=== PATIENT | male | born 1935 | race Caucasian/White ===

== ENCOUNTER 2017-05-05 15:17 | Emergency (ER) | payer OTHER ==
[2017-05-05 15:44] VITALS: BP 123/77; PULSE 77; RESP 16; TEMP 97.5; O2SAT 99
--- NOTE | 2017-05-05 15:57 | EDPHY ---
H & P Time Seen by Provider: 05/05/17 15:43 HPI/ROS: CHIEF COMPLAINT: Right knee pain HISTORY OF PRESENT ILLNESS: Patient is an 82-year-old male presents emergency department with right knee pain. The patient tripped and fell Tuesday evening in his bedroom. He landed on his right knee. HEENT developed significant discomfort on his right knee and pain with movement. He was able to ambulate with the brace he had at home. He has no numbness or tingling. Reports significant swelling and bruising. Did not strike his head or lose consciousness. No neck or back pain. Patient has chronic pulmonary fibrosis and is on oxygen 24/. No new shortness of breath or chest pain. REVIEW OF SYSTEMS: My complete review of systems is negative except as mentioned in the HPI. Past Medical/Surgical History: Includes pulmonary fibrosis, prostatic cancer Past surgical history: Includes Bilateral knee replacement, hernia repair, TURP Social history: The patient is Smoking Status: Never smoked Physical Exam: Vitals noted GENERAL: Well-appearing, in no acute distress, alert. HEAD: No evidence of trauma. EYES: PERRLA, EOMI, normal to inspection. ENT: Airway intact, normal external examination. NECK: The trachea is midline. There is no crepitus. The C-spine is nontender. RESPIRATORY: Clear to auscultation bilaterally, no rales, rhonchi or wheezing. There is no crepitus or palpable rib fractures. CVS: Regular rate and rhythm, no rubs, murmurs, or gallops. ABDOMEN: Soft, nontender, nondistended, normal bowel sounds, no bruising or abrasions. Pelvis: Stable. No tenderness palpation. Hips full range of motion. BACK: Normal to inspection, no spinal tenderness, no spinal step off, no notable bruising or abrasions. SKIN: Normal color, warm, dry. No pallor or diaphoresis. EXTREMITIES: Right upper extremity: Atraumatic. No visible signs of trauma. No tenderness palpation. Neurovascular intact distally. Left upper extremity: Atraumatic. No visible signs of trauma. No tenderness palpation. Neurovascular intact distally. Right lower extremity: Atraumatic. Patient has significant swelling over his right knee. Swelling is more pronounced medial to the patella. There is ecchymosis up the medial thigh and surrounding knee. Patient has no significant discomfort with mild passive range of movement. He is neurovascular intact distally.. Left lower extremity: Atraumatic. No visible signs of trauma. No tenderness palpation. Neurovascular intact distally. Atraumatic, neurovascularly intact distally in all extremities, pelvis is stable , hips with full range of motion, moves all extremities freely. NEURO/PSYCH: Alert and oriented, GCS 15, normal mood and affect, normal motor sensory exam. Constitutional: Initial Vital Signs Temperature (C) 36.4 C 05/05/17 15:39 Heart Rate 77 05/05/17 15:39 Respiratory Rate 16 05/05/17 15:39 Blood Pressure 123/77 H 05/05/17 15:39 O2 Sat (%) 99 05/05/17 15:39 O2 Delivery Mode Room Air Allergies/Adverse Reactions: Penicillins Allergy (Verified 05/05/17 15:44) Home Medications: Medication Instructions Recorded Caltrate Gummy Bites 05/05/17 Levothyroxine 05/05/17 Multivitamin 05/05/17 Norvasc 05/05/17 Ofev 05/05/17 Oxygen 05/05/17 Pantoprazole Sodium 05/05/17 Preservision Areds 2 Softgel 05/05/17 Senna 05/05/17 Ventolin Hfa Inhaler 05/05/17 Vitamin D3 05/05/17 Zantac 05/05/17 Medical Decision Making ED Course/Re-evaluation: In the emergency department I discussed possible etiologies with the patient. I answered all his questions. Right knee x-ray: Please refer the dictated report by the radiologist. I discussed the case with Dr. Cee. He was concerned that this represented a patellar dislocation. The patella is now in normal alignment. There is small chip fracture off the patella. Discussed the results with the patient. I answered all his questions. He is placed in a knee immobilizer. He was given crutches. Patient states he also has a walker at home. He will follow up with Orthopedics. He is given warnings prior to leaving. He will return with worsening symptoms. Differential Diagnosis: My differential includes but is not limited to fracture, dislocation, internal disruption, meniscal tear, sprain, strain, contusion, tendon rupture Departure - Departure Disposition: Home, Routine, Self-Care Clinical Impression: Patellar dislocation Qualifiers: Encounter type: initial encounter Laterality: right Qualified Code(s): S83.004A - Unspecified dislocation of right patella, initial encounter Patella fracture Qualifiers: Encounter type: initial encounter Fracture type: closed Fracture morphology: other fracture Laterality: right Qualified Code(s): S82.091A - Other fracture of right patella, initial encounter for closed fracture Condition: Good Instructions: Patellar Fracture (ED), Patellar Dislocation (ED), Knee Immobilizer (ED) Additional Instructions: Keep your splint in place. Use your crutches or walker as needed. Return with increasing pain, weakness, numbness or any other concerns. Referrals: Kelvin Lopez MD [Medical Doctor] - 5-7 days, if not improved
== END 2017-05-05 17:06 | disposition home or self-care (01) ==
LOC: CED 15:17
DX: S82.091A Other fracture of right patella, initial encounter for closed fracture (principal); S83.004A Unspecified dislocation of right patella, initial encounter; Z85.46 Personal history of malignant neoplasm of prostate; W01.0XXA Fall on same level from slipping, tripping and stumbling without subsequent striking against object, initial encounter; Y92.003 Bedroom of unspecified non-institutional (private) residence as the place of occurrence of the external cause
CPT/HCPCS: 73564; 99283; L1830